=== PATIENT | male | born 1960 | race Caucasian/White ===

== ENCOUNTER → 2022-05-04 15:49 | Outpatient (BNVA) | payer SELFPAY | PROVIDERS: Family Provider Electrodiagnostic Medicine; PCP Electrodiagnostic Medicine; Visit Provider Nurse Practitioner | DX: I10 Essential (primary) hypertension (principal); K58.9 Irritable bowel syndrome, unspecified; R07.9 Chest pain, unspecified | CPT/HCPCS: 80053; 80061; 84484; 85025 ==